=== PATIENT | female | born 1955 | race Caucasian/White ===

== ENCOUNTER 2018-04-22 17:00 | Outpatient (CLI) | payer MEDICARE, OTHER ==
--- NOTE | 2018-04-22 18:39 | Ultrasound Report ---
Procedure Date: 04/22/2018 Accession Number: [id number] / [id number] Procedure: US - Abdomen Limited CPT Code: FULL RESULT: EXAM: Abdomen Limited DATE: 04/22/2018 5:58 PM CLINICAL HISTORY: ABNORMAL LIVER FUNCTION TESTS, RUQ PAIN TECHNIQUE: Real time scanning by the licensing and registration director with saved static images reviewed. COMPARISON: None FINDINGS: Study is limited secondary to patient body habitus. Liver measures 17.6 cm in length with increased echogenicity consistent with fatty infiltration. No definite focal pathology is seen. Normal directional portal venous blood flow. Gallbladder: Contracted. Wall thickness 4.6 mm. Question nonmobile stone in the fundus. Common bile duct: 5.2 mm. Right kidney: 10.9 cm longitudinally. Grossly unremarkable Free fluid: None IMPRESSION: Limited study. Fatty infiltration of the liver. Contracted gallbladder with possible immobile stone in the fundus.
== END 2018-04-22 17:01 | disposition home or self-care (01) ==
LOC: DI 17:00
PROVIDERS: ATTEND Family Medicine
DX: K76.0 Fatty (change of) liver, not elsewhere classified (principal)
CPT/HCPCS: 76705

== ENCOUNTER 2018-11-09 13:26 | Emergency (ER) | payer MEDICARE, OTHER ==
[2018-11-09 13:37] VITALS: BP 132/94
[2018-11-09] MEDS ORDERED: HYDROmorphone 1 MG/ML CARPUJECT IM STA (14:09)
[2018-11-09] MEDS ORDERED: ONDANSETRON ODT 4 MG TABLET TL STA (14:09)
--- NOTE | 2018-11-09 14:11 | ED Physician Documentation ---
PD HPI BACK INJURY - Stated complaint Stated Complaint: LWR BACK PX - History obtained from History obtained from: Patient - History of Present Illness Location: Lower (Bending over last night she felt a crunch in her low back and has had severe pain ever since that has not been relieved by CBD oil or ibuprofen. There is no weakness, numbness, tingling, saddle anesthesia or fever. She has chronic incontinence which is unchanged from prior.) Review of Systems Constitutional: denies: Fever, Chills GI: denies: Abdominal Pain, Nausea, Vomiting Musculoskeletal: reports: Back pain. denies: Neck pain PD PAST MEDICAL HISTORY - Past Medical History Cardiovascular: Hypertension, High cholesterol, Angina Respiratory: Asthma, COPD, Sleep apnea Endocrine/Autoimmune: Type 2 diabetes GI: GERD, Other Psych: Panic attacks Musculoskeletal: Osteoarthritis, Other - Past Surgical History General: Hiatal hernia repair Ortho: Carpal Tunnel surgery /TOURS CAPTAIN: Tubal ligation - Present Medications Home Medications: Ambulatory Orders Medication Instructions Recorded Confirmed Albuterol [Ventolin Hfa] 2 puffs INH Q4HR PRN 04/10/15 05/02/18 Fluoxetine HCl 20 mg PO DAILY 04/10/15 05/02/18 Omeprazole [PriLOSEC] 20 mg PO BID 04/10/15 05/02/18 Budesonide/Formoterol Fumarate 10.2 gm IH BID 05/02/18 05/02/18 [Symbicort 160-4.5 Mcg Inhaler] Hydrochlorothiazide 12.5 mg PO DAILY 05/02/18 05/02/18 Levothyroxine Sodium 25 mcg PO DAILY 05/02/18 05/02/18 Metformin HCl 500 mg PO BIDWM 05/02/18 05/02/18 Nitroglycerin [Nitrostat] 0.4 mg SL Q5MIN PRN 05/02/18 05/02/18 Cyclobenzaprine [Flexeril] 10 mg PO TID PRN #20 tablet 11/09/18 Hydrocodone/Acetaminophen 1 - 2 each PO Q6H PRN #14 tablet 11/09/18 [Hydrocodon-Acetaminophen 5-325] Lisinopril 11/09/18 11/09/18 - Allergies Allergies/Adverse Reactions: Allergies Allergy/AdvReac Type Severity Reaction Status Date / Time iodine Allergy Severe blisters Verified 11/09/18 13:38 and swelling gold Au 198 Allergy Rash Verified 11/09/18 13:38 ibuprofen AdvReac Unknown Verified 11/09/18 13:38 naproxen [From Aleve] AdvReac Unknown Verified 11/09/18 13:38 - Social History Does the pt smoke?: No Smoking Status: Never smoker Does the pt drink ETOH?: No Does the pt have substance abuse?: No - Immunizations Immunizations are current?: Yes PD ED PE NORMAL - Vitals Vital signs reviewed: Yes - General General: Alert and oriented X 3, No acute distress, Other (Winces and screams with motion) - Abdomen Abdomen: Normal bowel sounds, Soft, Non tender - Back Back: Other (Severe tenderness to the lumbar spine) - Extremities Extremities: Other (The patient has equal and normal Achilles and patellar reflexes bilaterally. Normal sensation in all areas of the legs. Patient denies saddle anesthesia. Normal strength in flexion-extension at the ankles, knees, and flexion of the hips.) - Neuro Neuro: Alert and oriented X 3, Normal speech Results - Vitals Vitals: Vital Signs - 24 hr 11/09/18 13:35 Temperature 36.4 C L Heart Rate 109 H Respiratory 20 Rate Blood Pressure 132/94 H O2 Saturation 97 Oxygen O2 Source Room air - Rads (name of study) L spine CT Radiology: EMP read contemporaneously (Mild degenerative changes at L5-S1 without evidence for acute osseous injury.) PD MEDICAL DECISION MAKING - ED course ED course: 63-year-old woman with fibromyalgia presents with low back pain, the history is concerning for spontaneous compression fracture as is the initial physical examination so CT was done without pertinent positive findings. She was feeling better after medications and muscle relaxer here. Departure - Departure Disposition: 01 Home, Self Care Clinical Impression: Lumbar pain Condition: Good Record reviewed to determine appropriate education?: Yes Instructions: ED Spasm Back No Trauma Prescriptions: Cyclobenzaprine [Flexeril] 10 mg PO TID PRN #20 tablet PRN Reason: Spasms Hydrocodone/Acetaminophen [Hydrocodon-Acetaminophen 5-325] 1 - 2 each PO Q6H PRN #14 tablet PRN Reason: pain Comments: Call your doctor to arrange a follow-up appointment, make the next available appointment. In the interim, return anytime if worse or if new symptoms develop. Do not drink or drive while taking narcotic pain medication. Note that many narcotic pain relievers also contain Tylenol/acetaminophen. Please ensure that your total dose of acetaminophen from all sources does not exceed 3 g (3000 mg) per day. You may get constipated while on this medication. Take a stool softener such as Colace twice a day while you are on it. Also add an mnlv-grz-skboaad laxative such as senna or MiraLAX on any day that you do not have a bowel movement. If you received a narcotic pain medication or sedative while in the emergency department, do not drive for the next 24 hours. Your blood pressure was elevated today on check into the emergency department. This does not mean that you have hypertension, it is a common phenomenon to come to the emergency department and have elevated blood pressure. I recommend that you see your primary care physician within the week to have it rechecked when you are feeling better.
--- NOTE | 2018-11-09 16:12 | CT Report ---
Reason: back inj Procedure Date: 11/09/2018 Accession Number: [id number] / [id number] Procedure: CT - Lumbar Spine W/O CPT Code: FULL RESULT: EXAM: CT LUMBAR SPINE WITHOUT CONTRAST EXAM DATE: 11/09/2018 03:18 PM. CLINICAL HISTORY: Back inj. COMPARISONS: PELVIS 06/18/2006 9:06 AM. TECHNIQUE: Thin-section axial images were acquired of the lumbar spine from T12 to S1 without contrast. Post-processing: Coronal and sagittal reformats. Other: None. In accordance with CT protocol optimization, one or more of the following dose reduction techniques were utilized for this exam: automated exposure control, adjustment of mA and/or KV based on patient size, or use of iterative reconstructive technique. FINDINGS: No evidence for acute fracture or subluxation. Degenerative discogenic change at the L5/S1 level. Bilateral sacroiliac joints appear unremarkable. Right renal hypodense 0.8 cm lesion, suggestive of cyst. Sigmoid diverticulosis. IMPRESSION: No evidence for acute osseous injury lumbosacral spine. Mild degenerative change at the L5/S1 level. RADIA
[2018-11-09] MEDS ORDERED: CYCLOBENZAPRINE 10 MG TABLET PO STA (16:19)
== END 2018-11-09 16:32 | disposition home or self-care (01) ==
LOC: ED 13:26
DX: M54.5 Low back pain (principal); I10 Essential (primary) hypertension; E78.00 Pure hypercholesterolemia, unspecified; E11.9 Type 2 diabetes mellitus without complications
CPT/HCPCS: 72131; 96372; 99283; A9270; J1170; Q0162

== ENCOUNTER 2019-06-27 08:17 | Outpatient (CLI) | payer OTHER ==
--- NOTE | 2019-06-27 14:56 | Mammography Report ---
Reason: SCREENING MAMMO Procedure Date: 06/27/2019 Accession Number: [id number] / [id number] Procedure: RUIZ - Screening Mammo w/George CPT Code: FULL RESULT: EXAM: Screening Mammo w/George DATE: 06/27/2019 8:50 AM CLINICAL HISTORY: Routine screening. No reported personal or family history of breast cancer. TECHNIQUE: (B) - Bilateral CC and MLO views were obtained. COMPARISON: 11/02/2016 through 05/18/2010. PARENCHYMAL PATTERN: (A) - The breasts demonstrate scattered fibroglandular densities bilaterally. FINDINGS: Bilateral breasts: There are no suspicious masses, calcifications, or areas of distortion. IMPRESSION: Negative examination. BI-RADS category 1. RECOMMENDATION: (ANNUAL) - Recommend routine annual screening mammography. BI-RADS CATEGORY: (1) - Negative. STANDARD QUALIFYING STATEMENTS: 1. This examination was not reviewed with the aid of Computer-Aided Detection (CAD). 2. A negative or benign imaging report should not preclude biopsy if clinically suspicious findings are present. 3. Dense breasts may obscure an underlying neoplasm. 4. This examination was reviewed without the aid of 3D breast imaging (tomosynthesis).
== END 2019-06-27 08:18 | disposition home or self-care (01) ==
LOC: DI 08:17
DX: Z12.31 Encounter for screening mammogram for malignant neoplasm of breast (principal)
CPT/HCPCS: 77063; 77067

== ENCOUNTER 2019-06-27 08:17 | Outpatient (CLI) | payer OTHER ==
--- NOTE | 2019-06-27 16:42 | DEXA Report ---
Reason: SCREENING FOR OSTEOPOROSIS Procedure Date: 06/27/2019 Accession Number: [id number] / [id number] Procedure: DEX - Dexa Spine and/or Hip CPT Code: FULL RESULT: EXAM: Dexa Spine and/or Hip DATE: 06/27/2019 9:02 AM CLINICAL HISTORY: SCREENING FOR OSTEOPOROSIS TECHNIQUE: Dual energy x-ray absorptiometry (DXA) was performed on a [employer] System. Regions measured are the AP Spine, femoral neck, and if needed forearm. COMPARISON: None. In accordance with the International Society for Clinical Densitometry (ISCD) guidelines, data from previous exams may be reanalyzed using current recommendations and techniques. This is done to allow a more accurate basis for comparison with the current study. FINDINGS: The data for the lumbar spine is as follows: BMD (g/cm/cm) T-SCORE Z-SCORE REGION L1 1.211 0.7 1.1 L2 1.186 -0.1 0.3 L3 1.314 1.0 1.4 L4 1.289 0.7 1.2 TOTAL 1.256 0.6 1.1 NOTE: All evaluable vertebrae are used for classification The data for the hip is as follows: BMD (g/cm/cm) T-SCORE Z-SCORE REGION Neck 1.072 0.2 1.0 TOTAL 1.243 1.9 2.3 NOTE: The femoral neck or total proximal femur, whichever is lowest, is used for classification. IMPRESSION: THE WHO CLASSIFICATION BASED ON THE INTERNATIONAL REFERENCE STANDARD IS NORMAL. THE FRACTURE RISK IS NOT INCREASED. RECOMMENDATION: Patients with diagnosis of osteoporosis or osteopenia should have regular bone mineral density assessment. For those eligible for Medicare, routine testing is allowed once every 2 years. Testing frequency can be increased for patients who have rapidly progressing disease or for those who are receiving medical therapy to restore bone mass. COMMENT: World Health Organization (WHO) definitions for osteoporosis and osteopenia: NORMAL BMD: T-score at -1.0 or higher, fracture risk is low OSTEOPENIA BMD: T-score between -1.0 and -2.5, fracture risk is increased. OSTEOPOROSIS BMD: T-score at -2.5 or lower, fracture risk is high. National Osteoporosis Foundation recommends: 1. Obtain adequate dietary calcium (at least 1200 mg per day) and vitamin D (400-800 international units per day). 2. Participate, as appropriate, in regular weightbearing and muscle-strengthening exercise. 3. Avoid tobacco use and reduce alcohol and caffeine intake. 4. For more detailed information see the website at www.NOF.org.
== END 2019-06-27 08:18 | disposition home or self-care (01) ==
LOC: DI 08:17
DX: Z13.820 Encounter for screening for osteoporosis (principal)
CPT/HCPCS: 77080

== ENCOUNTER 2020-06-15 19:15 | Outpatient (CLI) | payer OTHER | END 2020-06-15 19:16 | disposition home or self-care (01) | LOC: SC 19:15 | PROVIDERS: ATTEND Internal Medicine Pulmonary Disease | DX: G47.33 Obstructive sleep apnea (adult) (pediatric) (principal); G47.61 Periodic limb movement disorder; E66.9 Obesity, unspecified; Z68.34 Body mass index [BMI] 34.0-34.9, adult | CPT/HCPCS: 95810 ==

== ENCOUNTER 2020-07-29 10:57 | Outpatient (CLI) | payer MEDICARE, OTHER ==
[2020-07-29 12:35] VITALS: BP 104/70
--- NOTE | 2020-07-29 12:35 | SLEEP CARE CONSULTATION ---
Information from patient questionnaire entered by Leisa Carrillo. I have reviewed and concur with the information entered by Leisa Carrillo. This document represents the service I personally performed and the decisions made by me, Gemma Cervantes, RN, MSN, MASTER SHEET CLERK. History of Present Illness Service Date and Time: 07/29/2020 1057 Initial [place] Sleepiness Scale score: 15 (in 2008) Current [place] Sleepiness Scale score: 7 Additional HPI information: PRASAD OLIVEIRA returns for follow up and results of the recently performed polysomnography. I explained the pathophysiology behind obstructive sleep apnea. We then spent quite a bit of time discussing different treatment options. For mild obstructive sleep apnea, surgery and oral appliance are alternatives to nasal CPAP therapy but in moderate or severe cases, nasal CPAP is the most effective and reliable treatment. I reviewed the impact of weight changes on sleep apnea and strongly recommended losing weight. After some discussion, the patient opted to go with the nasal CPAP therapy. Nasal autoCPAP set at [id number] will be ordered with rationale explained. A manual titration study will be ordered if unable to find optimal pressure with office adjustments. I explained how CPAP machine works and what to expect when using the machine. Using CPAP every night in order to get used to it was emphasized. Patient advised to put CPAP mask on before getting into bed so as not to fall asleep without CPAP. To assist acclimation to CPAP use, it could also be used for a short time during day while reading or watching TV. The patient was instructed to call the CPAP supplier to discuss any mechanical problem that may occur. If the mask given is uncomfortable or is difficult to keep on through the night even with adjustment, contact the CPAP supplier as many will replace with another mask style if notified before 30 days. If snoring or perceives is not getting enough air or too much air from the machine, notify this office. A[facility] patient education PAP tips reviewed and given to patient. Patient counseled not drink alcohol less than 4 hours before bedtime as it can increase snoring and apnea. Patient does not drink alcohol. Patient was cautioned about risks of drowsy driving until sleepiness symptoms resolve. Patient does not drive. Sleep Study - Results Type of Sleep Study: Polysomnography Prior sleep studies: Yes Year and Where: 2008 - [facility] Sleep Polysomnography/Home Sleep Study results: The quality of the study is good. The patient had slightly reduced sleep efficiency due to a few awakenings after the sleep onset.. The sleep architecture was abnormal for sleep fragmentation and reduced amount of time spent in REM and slow wave sleep (N3). Respiratory monitoring showed severe obstructive sleep apneahypopnea (AHI = 41.9) associated with frequent arousals, oxyhemoglobin desaturation and mild hypoxia (pawel oxygen saturation of 86%). The respiratory events occurred mainly during supine sleep (supine AHI = 68.7; nonsupine = 38.14). Snore was loud in intensity. There was severe periodic leg movement of sleep contributing to the sleep fragmentation. Cardiac rhythm was normal sinus rhythm without significant arrhythmia. No abnormal behavior (parasomnia) observed during the night. Allergies and Home Medications Known drug allergies: Yes Home medication list reviewed: Yes (no CHANGES) Review of Systems Review of systems same as previous: No (shortness of breath on exertion since smoke) Physical Exam Blood Pressure: 104/70 Cuff size: long Heart Rate: 112 (usual range 110-120) O2 Saturation: 98 Height: 5 ft 3 in Weight: 228 lb Weight change since last visit: gained 20 pounds since last seen / no edema Body Mass Index: 40.4 BMI Classification: Morbidly Obese Lungs: clear bilaterally (complaining of increase in shortness of breath since smoke about 2-3 weeks ago - planning on following up with PCP) Impression and Plan 1. Obstructive Sleep Apnea-Hypopnea Syndrome, severe, with lowest oxygen saturation of 86%. Obviously this is the cause of the patients symptoms of unrefreshed sleep, and excessive daytime sleepiness. Positive pressure therapy could benefit her hypertension, cardiac disease, asthma and depression. As mentioned above, the patient will be started on nasal autoCPAP therapy with pressure set at 4-15 cmH2 O. A manual titration study will be completed if unable to find optimal treatment pressure with office adjustments. Compliance guidelines also reviewed. A copy of compliance guidelines will be given for reference at check out. Because the apnea is more severe supine, I instructed to avoid sleeping supine using pillow positioning until able to start CPAP use. 2. Periodic limb movement, severe, that did fragment patients sleep. Periodic limb movement of sleep (PLMS) is characterized by episodes of repetitive limb movements that occur during sleep and usually involve the lower limbs. The etiology is unknown but can be associated with restless leg syndrome (RLS), neuropathy, spinal cord diseases, kidney disease, rheumatological disorders, narcolepsy, obstructive sleep apnea, and REM sleep behavior disorder. Other factors that can increase PLMS and/or RLS are heredity and iron deficiency as reflected by a low serum ferritin level below 50 to 75mcg / L. Several medications can precipitate or aggravate PLMS such as selective serotonin re- uptake inhibitor antidepressants, tricyclic antidepressants, lithium, and dopamine receptor antagonists with the exception of bupropion. Caffeine can also aggravate PLMS and should be avoided. Sleep hygiene methods can also improve sleep as well as lifestyle changes such as regular exercise. Patient was advised further evaluation is indicated. Since she states she has had jerking of limbs for many years that prevents her from driving, a neurology evaluation is recommended if not already completed. 3. Dyspnea, explained as shortness of breath with exertion has increased since smoke in air a couple of weeks ago. She has been using her inhaler more frequently with benefit. Physical exam showed lungs clear upon auscultation and no edema noed in legs or feet. Patient advised to follow up with her PCP further evaluation and agreed with plan. * Nasal auto CPAP therapy, pressure at 4-15 cm H2O. * Attempt to lose weight. * Avoid alcohol consumption near bedtime. * Avoid supine sleep until using CPAP. * The patient is again cautioned about driving until sleepiness completely resolves. * Return one month after CPAP obtained. I will assess response to therapy and compliance at that time. Visit Type: In Office Time Spent with Patient (minutes): 35 - extra time taken due to patient hearing deficit Provider Statement: I spent 100% of the Face to Face Visit with the patient with greater than 50% spent counseling the patient and coordination of care.
== END 2020-07-29 10:58 | disposition home or self-care (01) ==
LOC: SC 10:57
PROVIDERS: ATTEND Nurse Practitioner Family
DX: G47.33 Obstructive sleep apnea (adult) (pediatric) (principal); G47.61 Periodic limb movement disorder; R06.02 Shortness of breath; E66.01 Morbid (severe) obesity due to excess calories; Z68.41 Body mass index [BMI] 40.0-44.9, adult
CPT/HCPCS: 99214; G0463; 99212

== ENCOUNTER 2022-03-30 08:00 | Outpatient (CLI) | payer MEDICARE, OTHER ==
[2022-03-30 17:28] LABS: CALCIUM 9.7 mg/dL (8.5-10.3); CREATININE 0.8 mg/dL (0.4-1.0); POTASSIUM 4.7 mmol/L (3.5-5.0)
[2022-03-30 20:11] LABS: ESTIMATED AVERAGE GLUCOSE 189 mg/dL (70-100); HEMOGLOBIN A1c% 8.2 % (4.27-6.07)
== END 2022-03-30 23:59 | disposition home or self-care (01) ==
LOC: LAB.R 08:00
PROVIDERS: ATTEND Internal Medicine
DX: E11.9 Type 2 diabetes mellitus without complications (principal); Z79.899 Other long term (current) drug therapy
CPT/HCPCS: 80048; 82607; 83036

== ENCOUNTER 2022-10-12 09:30 | Outpatient (CLI) | payer MEDICARE, OTHER ==
--- NOTE | 2022-10-12 10:50 | Ultrasound Report ---
PROCEDURE: Duplex Ext Veins Left INDICATIONS: LEFT LEG EDEMA TECHNIQUE: Real-time imaging, as well as color and pulse Doppler interrogation, were performed of the lower extr emity deep veins from the inguinal ligament to the popliteal fossa. COMPARISON: None. FINDINGS: Fully occlusive acute deep venous thrombosis in the left common femoral vein, deep femoral vein, and superficial femoral vein as well as the greater saphenous vein and popliteal vein. IMPRESSION: Extensive acute and fully occlusive deep venous thrombosis involving the left common fem oral vein, greater saphenous vein, femoral vein, and popliteal vein. Reviewed by: Hubert Das MD on 10/12/2022 9:48 AM [facility] Approved by: Hubert Das MD on 10/12/2022 9:48 AM [facility] Station ID: [id number]
== END 2022-10-12 09:31 | disposition home or self-care (01) ==
LOC: DI 09:30
PROVIDERS: ATTEND Family Medicine
DX: I82.412 Acute embolism and thrombosis of left femoral vein (principal); I82.4Z2 Acute embolism and thrombosis of unspecified deep veins of left distal lower extremity; I82.432 Acute embolism and thrombosis of left popliteal vein